=== PATIENT | male | born 2000 | race Caucasian/White ===

== ENCOUNTER → 2021-04-06 | Outpatient (CLI) | payer OTHER ==
[~2021-04-06] MED LIST: GADOTERATE 5 MMOL/10ML VIAL. INT ART ONE; IOHEXOL 300 MG/ML 50 ML VIAL. INT ART ONE; LIDOCAINE 1% Multi-Dose 20 ML VIAL. ID ONE
--- NOTE | 2021-04-06 18:26 | KCIC ---
EXAM: Fluoroscopically guided right glenohumeral joint injection for MRI arthrogram INDICATION: Right shoulder pain. Previous labral repair 4 years ago. Shoulder pops out of place. COMPARISON: None TECHNIQUE/FINDINGS: The purpose of the procedure and risks including infection, bleeding, contrast reaction, and pain wer e discussed with the patient. Informed consent was obtained. A timeout was performed. After obtaining consent, the patient was placed supine on the fluoroscopy table with the right should er externally rotated. The skin overlying the right shoulder was marked, sterilized and draped. Sup erficial and deep soft tissues were anesthetized with 1% lidocaine. Utilizing fluoroscopic guidance, a 22-gauge 1.5 inch needle was advanced into the joint. Intraarticular position was confirmed with i njection of a small amount of iodinated contrast. Subsequently, 13 mm of a solution containing the f ollowing items was instilled into the joint: 10 mL of 1% lidocaine, 5 mL of sterile saline, 5 mL of non-ionic iodinated contrast, and 0.1 mL of gadolinium. At the end of the procedure, the needle was removed. The overlying skin was cleansed and covered wit h a bandaid. The patient tolerated the procedure well and was free of immediate complications. The p atient was transferred for the MR portion of the exam in stable condition. Total fluoroscopic time: 10 seconds. One image acquired. IMPRESSION: Technically successful right glenohumeral joint injection for the purposes of MR arthrog ginette. Electronically signed by: Kathy Edwards MD (04/06/2021 6:24 PM) [id number]
--- NOTE | 2021-04-07 09:33 | KCIC ---
EXAM: MRI RIGHT SHOULDER WITH CONTRAST INDICATION: Right shoulder pain, previous labral repair 4 years ago. Shoulder pops in and out of plac e. COMPARISON: None TECHNIQUE: Multiplanar, multisequence imaging of the right shoulder after intra-articular injection o f contrast, performed separately. FINDINGS: ROTATOR CUFF: The supraspinatus, infraspinatus, subscapularis, and teres minor tendons are intact. No rotator cuff muscle atrophy or edema. LABRUM: There is suspected surgical changes of anterior superior and anterior labral tear. There is a contrast-filled defect in the superior labrum extending anteriorly and posteriorly. Anteriorly it ex tends through the anterior superior labrum to at least 3:00. This is suspicious for a tear, though a large superior sublabral recess and anterior superior sublabral foramen are possible. The anterior in ferior labrum is blunted and irregular in appearance, which could be postoperative or due to tearing. The posterior labrum appears intact. BICEPS TENDON: The biceps tendon is intact and located. ACROMIOCLAVICULAR JOINT: Normal. Type II acromion without downsloping. GLENOHUMERAL JOINT: Mild cartilage irregularity of the anterior superior glenoid. Articular cartilage is otherwise intact. Alignment is normal. Marrow signal is normal. OTHER: There is contrast in the joint. Trace fluid but no contrast in the subacromial-subdeltoid burs a.. IMPRESSION:There appear to be surgical changes of anterior superior and anterior labral repair. There is a large linear contrast-filled defect in the superior labrum extending anteriorly and posteriorly . Anteriorly this extends to at least 3:00. This is suspicious for a labral tear, although a large re cess/foramen are possible. The anterior inferior labrum is blunted and irregular, which could be post operative or due to tearing. Recommend correlation with arthroscopy report and prior MRI. Electronically signed by: Kathy Edwards MD (04/07/2021 9:30 AM) [id number]
== END | disposition home or self-care (01) ==
LOC: KCIC 12:51
PROVIDERS: ATTEND Physical Therapist
DX: M25.511 Pain in right shoulder (principal); Z79.899 Other long term (current) drug therapy
CPT/HCPCS: 23350; 73222; 77002; A9575; J3490; Q9967